=== PATIENT | female | born 1985 | race Caucasian/White ===

== ENCOUNTER 2019-08-06 06:32 | Emergency (ER) | payer BC ==
[~2019-08-06] VITALS: Ht 177.8 cm; Wt 109.2 kg
[~2019-08-06 06:32] MED LIST: HYDR115S2 PO; HYDR25TA PO; METH4TAB2 PO
--- NOTE | 2019-08-06 06:50 | PHYS DOC ---
Past History Past Medical History: Bronchitis, Hypertension Past Surgical History: , Other Smoking: Non-smoker Alcohol Use: Occasionally Drug Use: None Adult General HPI HPI Patient is a 34-year-old female who presents to the emergency department for evaluation. She states that she always gets very anxious this time of year and has been dealing with a lot of anxiety over the past several weeks. She states that for the past several weeks she has had fullness in her ears bilaterally, along with a mild left-sided frontal/temporal headache. The headache is not "worst take of her life", and she denies any vision changes, numbness, or weakness. She states that her symptoms seemed to improve when laying down, and when "popping" for years. She has not had any nasal congestion or sore throat. She states that about a year ago, by her POLE SETTER, she was told that she might have high blood pressure, and she went to her PCP earlier this week, and was found to have blood pressures in the 160s over 110s, and was started on lisinopril, she took her first dose yesterday. She states that she feels very anxious, and thinks that a lot of her symptoms are anxiety driven. She has not had any nausea, vomiting, diarrhea, chest pain, shortness of breath, vision changes, numbness, weakness, cognitive changes, or hearing changes. There are no alleviating or exacerbating factors to her symptoms. Review of Systems Review of Systems Constitutional: Denies fever or chills [] Eyes: Denies change in visual acuity, redness, or eye pain [] HENT: Denies nasal congestion or sore throat [] Respiratory: Denies cough or shortness of breath [] Cardiovascular: The patient denies any shortness of breath, chest pain, palpitations, or orthopnea [] GI: Denies abdominal pain, nausea, vomiting, bloody stools or diarrhea [] : Denies dysuria or hematuria. Denies possibility of pregnancyLMP 2 weeks ago [] Musculoskeletal: Denies back pain or joint pain [] Integument: Denies rash or skin lesions [] Neurologic: Denies focal weakness or sensory changes [] Endocrine: Denies polyuria or polydipsia [] All other systems were reviewed and found to be within normal limits, except as documented in this note. Allergies Allergies Allergies Coded Allergies Type Severity Reaction Last Updated Verified No Known Drug Allergies 08/08/16 No Physical Exam Physical Exam PHYSICAL EXAM: CONSTITUTIONAL: Well developed, well nourished HEAD: normocephalic, atraumatic EENT: PERRL, EOMI. Conjunctivae normal color, sclerae non-icteric; moist mucous membranes. Tympanic membranes are normal bilaterally. NECK: Supple, non-tender; no meningismus. LUNGS: Lungs CTA, breathing even and unlabored. Normal air movement. HEART: Regular rate and rhythm, no murmur CHEST: No deformity; non-tender ABDOMEN: The abdomen is soft, and non-tender, no masses or bruits. EXTREM: Normal ROM; no deformity, no calf tenderness. Normal pulses palpable in all extremities. There is no pedal edema. SKIN: No rash; no diaphoresis NEURO: Alert; normal speech and cognition; CN's grossly intact; strength grossly intact without focal deficit. BACK: No CVA TTP. Current Patient Data Lab Results Laboratory Tests Test 08/06/19 07:00 White Blood Count 6.6 x10^3/uL Red Blood Count 5.22 x10^6/uL Hemoglobin 15.3 g/dL Hematocrit 45.9 % Mean Corpuscular Volume 88 fL Mean Corpuscular Hemoglobin 29 pg Mean Corpuscular Hemoglobin Concent 33 g/dL Red Cell Distribution Width 13.3 % Platelet Count 207 x10^3/uL Neutrophils (%) (Auto) 69 % Lymphocytes (%) (Auto) 23 % Monocytes (%) (Auto) 7 % Eosinophils (%) (Auto) 1 % Basophils (%) (Auto) 0 % Neutrophils # (Auto) 4.5 x10^3uL Lymphocytes # (Auto) 1.5 x10^3/uL Monocytes # (Auto) 0.5 x10^3/uL Eosinophils # (Auto) 0.1 x10^3/uL Basophils # (Auto) 0.0 x10^3/uL Sodium Level 145 mmol/L Potassium Level 3.5 mmol/L Chloride Level 106 mmol/L Carbon Dioxide Level 29 mmol/L Anion Gap 10 Blood Urea Nitrogen 10 mg/dL Creatinine 0.7 mg/dL Estimated GFR (Cockcroft-Gault) 95.2 Glucose Level 97 mg/dL Calcium Level 8.5 mg/dL Current Medications Medications (Trade) Dose Ordered Sig/Dedra Route PRN Reason Start Time Stop Time Status Last Admin Dose Admin Lorazepam (Ativan Inj) 1 mg 1X ONCE IVP 08/06/19 07:15 08/06/19 07:16 DC 08/06/19 07:10 Acetaminophen (Tylenol) 1,000 mg 1X ONCE PO 08/06/19 07:00 08/06/19 07:03 DC 08/06/19 07:08 EKG EKG Normal sinus rhythm with a normal rate, normal axis, normal intervals, there are no acute ischemic ST/T changes.[] Radiology/Procedures Radiology/Procedures [] Course & Med Decision Making Course & Med Decision Making The patient's condition remains stable, her blood pressure has improved, after administration of anxiolytic. Her symptoms have improved. I do not believe she warrants imaging at this time, as her symptoms are not consistent with any severe or life-threatening condition, And I believe the risk of radiation exposure outweighs any benefit at this time. I discussed the importance of close outpatient follow-up with her PCP, as well as obtaining treatment for anxiety, and return precautions were discussed in detail. Dragon Disclaimer Dragon Disclaimer This electronic medical record was generated, in whole or in part, using a voice recognition dictation system. Departure Departure: Impression: Primary Impression: Anxiety Additional Impression: Hypertension Disposition: HOME, SELF-CARE Condition: STABLE Referrals: FLORINA ROBIN (PCP) Patient Instructions: Anxiety and Panic Attacks, General Headache Without Cause, Hypertension Problem Qualifiers DANI UNGER MD Aug 06, 2019 06:50
[2019-08-06] MEDS ORDERED: LISI10TA2 PO (06:52)
[2019-08-06] MEDS ORDERED: ACETAMINOPHEN 500 MG TABLET PO ONE (07:00)
[2019-08-06 07:20] LABS: BASO % 0 % (0-3); EOS # 0.1 x10^3/uL (0.0-0.7); EOS % 1 % (0-3); HEMATOCRIT 45.9 % (36.0-47.0); HEMOGLOBIN 15.3 g/dL (12.0-15.5); LYMPH # 1.5 x10^3/uL (1.0-4.8); LYMPH % 23 % (24-48); MEAN CORPUSCULAR HEMOGLOBIN 29 pg (25-35); MEAN CORPUSCULAR HGB CONC 33 g/dL (31-37); MEAN CORPUSCULAR VOLUME 88 fL (79-100); MONO # 0.5 x10^3/uL (0.0-1.1); MONO % 7 % (0-9); NEUT # 4.5 x10^3uL (1.8-7.7); NEUT % 69 % (31-73); PLATELET COUNT 207 x10^3/uL (140-400); RED BLOOD COUNT 5.22 x10^6/uL (3.50-5.40); RED CELL DISTRIBUTION WIDTH 13.3 % (11.5-14.5); WHITE BLOOD COUNT 6.6 x10^3/uL (4.0-11.0)
[2019-08-06 07:33] LABS: CALCIUM 8.5 mg/dL (8.5-10.1); CREATININE 0.7 mg/dL (0.6-1.0); GFR 95.2; POTASSIUM 3.5 mmol/L (3.5-5.1)
[2019-08-06 07:50] VITALS: BP 132/92
--- NOTE | 2019-08-07 08:18 | EKG ---
[address] [address] Test Date: 2019-08-06 Test Time: 07:29:43 Pat Name: WALE MUJICA Department: Room: Gender: F Dental Associate: : 1985 Requested By: DANI UNGER Order Number: [id number] Reading MD: Measurements Intervals [place] Rate: 72 P: 31 TN: 152 QRS: 3 QRSD: 104 T: 6 QT: 402 QTc: 442 Interpretive Statements SINUS RHYTHM NO SPECIFIC ECG ABNORMALITIES RI6.01 No previous ECG available for comparison
== END 2019-08-06 07:50 | disposition home or self-care (01) ==
LOC: ER 06:32
DX: F41.9 Anxiety disorder, unspecified (principal); I10 Essential (primary) hypertension
CPT/HCPCS: 36415; 80048; 85025; 93005; 96374; 99285; J2060

== ENCOUNTER 2021-09-26 06:53 | Emergency (ER) | payer BC ==
[~2021-09-26] VITALS: Ht 177.8 cm; Wt 114.1 kg
[~2021-09-26 06:53] MED LIST changes: +LISI10TA16 PO
--- NOTE | 2021-09-26 07:11 | PHYS DOC ---
Past History Past Medical History: Bronchitis, Hypertension Past Surgical History: , Other Additional Past Surgical Histo: rt ankle surgery Smoking: Non-smoker Alcohol Use: Occasionally Drug Use: None Adult General HPI HPI Patient is a 36-year-old female presenting for rash. Reports this is an acute on chronic issue. States this is happened numerous times in her life without any obvious exposure, sick contact or travel. Reports she is taken steroids and antihistamines in the past with relief, report current episode started on Saturday and improved after taking a dose of Sarita yesterday. Nonetheless, ongoing issues and reoccurrence of pruritic raised rash mostly present on bilateral reilly nds and eyelids concerned her prompting her to come in for evaluation. She admits she has been seen by an hyster driver in the past but has not yet had skin testing. She has history of hypertension otherwise no other noteworthy medical conditions Review of Systems Review of Systems Fourteen body systems of review of systems have been reviewed. See HPI for pertinent positives and negative responses, other trujillo all other systems are negative, non-pertinent or non-contributory Allergies Allergies Allergies Coded Allergies Type Severity Reaction Last Updated Verified No Known Drug Allergies 08/06/19 No Physical Exam Physical Exam Constitutional: Well developed, well nourished, no acute distress, non-toxic appearance. HENT: Normocephalic, atraumatic, bilateral external ears normal, oropharynx moist, no oral exudates, nose normal. Eyes: PERRLA, EOMI, conjunctiva normal, no discharge. Neck: Normal range of motion, no tenderness, supple, no stridor. Cardiovascular: Heart rate regular, sinus rhythm, no murmurs rubs or gallops Lungs & Thorax: Bilateral breath sounds clear to auscultation Abdomen: Bowel sounds normal, soft, no tenderness, no masses, no pulsatile masses. Nonsurgical abdomen, no peritoneal signs Skin: Warm, dry, no erythema, nonvesicular eukaryal rash present to dorsal portions of hands and upper eyelids Back: No tenderness, no CVA tenderness. Extremities: No tenderness, no cyanosis, no clubbing, ROM intact, no edema. Neurologic: Alert and oriented X 3, grossly normal motor & sensory function, no focal deficits noted. Psychologic: Anxious affect and mood EKG EKG [] Radiology/Procedures Radiology/Procedures [] Heart Score C/O Chest Pain: No Risk Factors: Risk Factors: DM, Current or recent (<one month) smoker, HTN, HLP, family history of CAD, obesity. Risk Scores: Risk Factors: DM, Current or recent (<one month) smoker, HTN, HLP, family history of CAD, obesity. Course & Med Decision Making Course & Med Decision Making ABCs unremarkable HPI and physical exam most consistent with eukaryal rash. 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 I disclosed most likely diagnosis of contact dermatitis versus acute on chronic Uticaria Patient symptoms improved with Sarita dose yesterday, advised her to start taking this daily in addition to Pepcid and/or Benadryl as needed for acute phase of symptoms. We discussed role of steroids but given nonsevere symptoms, joint decision to defer Patient has good access to primary care physician, she states she is able to get a visit by the end of the week for repeat evaluation and discussion for repeat hyster driver consultation which I feel is appropriate. Strict return precautions discussed prior to departure Roel Disclaimer Roel Disclaimer This electronic medical record was generated, in whole or in part, using a voice recognition dictation system. Departure Departure: Impression: Primary Impression: Urticaria Disposition: HOME / SELF CARE / HOMELESS Condition: STABLE Referrals: FLORIAN ROBIN (PCP) Additional Instructions: As discussed prior to ER departure, your evaluation was most consistent with you to Nito. Continue to take a daily antihistamine such as Sarita which she took last night. You can also take a medication such as Pepcid in the acute phase to help with symptom relief. I would contact your primary care physician immediately after ER departure to review ER visit today and need for close outpatient follow-up and consideration for hyster driver consultation. Any concerning signs or symptoms present prior to outpatient follow-up please do not hesitate to come back for repeat evaluation. Is a pleasure to take care of you and I wish you the best going forward JACLYN THOMPSON DO Sep 26, 2021 07:11
[2021-09-26 07:39] VITALS: BP 159/107
== END 2021-09-26 07:41 | disposition home or self-care (01) ==
LOC: ER 06:53
DX: L50.9 Urticaria, unspecified (principal); I10 Essential (primary) hypertension
CPT/HCPCS: 99282